=== PATIENT | female | born 1955 | race Caucasian/White ===

== ENCOUNTER 2025-02-26 07:07 | Day surgery (SDC) | payer MEDICARE ==
[~2025-02-26 07:07] MED LIST: Lactated Ringers 1,000 ML IV PRN; Sodium Chloride 0.9% 10 ML Syringe FLUSH PRN
[2025-02-26] MEDS ORDERED: fentaNYL 100 MCG/2 ML SDV IV ONE (07:08)
[2025-02-26] MEDS ORDERED: Midazolam 1 MG/ML 2 ML SDV IV ONE (07:08)
[2025-02-26 07:32] VITALS: BP 127/81; PULSE 74
[2025-02-26] MEDS: acetaZOLAMIDE 500 MG Cap.ER PO ONE (09:20)
== END 2025-02-26 09:28 | disposition home or self-care (01) ==
LOC: FB.SDS 07:07
PROVIDERS: ATTEND Ophthalmology
DX: H25.813 Combined forms of age-related cataract, bilateral (principal); I10 Essential (primary) hypertension; F17.210 Nicotine dependence, cigarettes, uncomplicated; Z88.0 Allergy status to penicillin; Z88.2 Allergy status to sulfonamides; Z88.8 Allergy status to other drugs, medicaments and biological substances; E66.9 Obesity, unspecified; Z68.32 Body mass index [BMI] 32.0-32.9, adult; Z79.899 Other long term (current) drug therapy
CPT/HCPCS: 00142; 66984; A9270; J2250; J3010; V2632

== ENCOUNTER 2025-03-12 06:47 | Day surgery (SDC) | payer MEDICARE ==
[2025-03-12] MEDS ORDERED: fentaNYL 100 MCG/2 ML SDV IV ONE (06:48)
[2025-03-12] MEDS ORDERED: Midazolam 1 MG/ML 2 ML SDV IV ONE (06:48)
[2025-03-12 07:17] VITALS: BP 138/75; PULSE 61
[2025-03-12] MEDS: acetaZOLAMIDE 500 MG Cap.ER PO ONE (08:36)
== END 2025-03-12 08:49 | disposition home or self-care (01) ==
LOC: FB.SDS 06:47
PROVIDERS: ATTEND Ophthalmology
DX: H26.9 Unspecified cataract (principal); I10 Essential (primary) hypertension; E66.9 Obesity, unspecified; F17.210 Nicotine dependence, cigarettes, uncomplicated; Z68.32 Body mass index [BMI] 32.0-32.9, adult; Z88.0 Allergy status to penicillin; Z88.2 Allergy status to sulfonamides; Z88.8 Allergy status to other drugs, medicaments and biological substances; Z79.899 Other long term (current) drug therapy
CPT/HCPCS: 00142; 66984; A9270; J2250; J3010; V2632